=== PATIENT | female | born 1950 | race Caucasian/White ===

== ENCOUNTER → 2019-05-04 | Outpatient (CLI) | payer MEDICARE, OTHER ==
--- NOTE | 2019-05-04 17:10 | Diagnostic Imaging Report ---
INDICATION: Right shoulder pain. COMPARISON: None available. TECHNIQUE: Three radiographs of the right shoulder dated May 04, 2019. FINDINGS: Pacer leads are partially visualized. Mild degenerative changes of the acromioclavicular joint. No acute fracture or dislocation. No destructive osseous process. Small calcific density is noted superolateral to the humeral head. Subacromial space is well maintained. The visualized right lung is clear. IMPRESSION: Small calcification superolateral to the humeral head. This may relate to minimal calcific tendinitis. Mild degenerative changes without acute osseous abnormality. Dictated by: Dictated on workstation # [id number]
== END ==
LOC: RAD 16:35
PROVIDERS: ATTEND Nurse Practitioner Family
DX: M19.011 Primary osteoarthritis, right shoulder (principal)
CPT/HCPCS: 73030